=== PATIENT | male | born 1975 | race Caucasian/White ===

== ENCOUNTER 2019-09-25 09:07 | Inpatient (IN) | payer SELFPAY ==
[2019-09-25 09:10] VITALS: BP 182/126; PULSE 99; RESP 18; TEMP 37.9; O2SAT 97; BMI 23.7
--- NOTE | 2019-09-25 09:20 | ED_ITS ---
Entered by Danielle Talbert, acting as scribe for Thor Hdz DO HPI - Psych General: Chief Complaint: Psychiatric Symptoms Stated Complaint: SI Time Seen by Provider: 09/25/19 09:39 Source: patient Mode of arrival: ambulatory Limitations: no limitations History of Present Illness: HPI Narrative: 43-year-old male presents emergency room with complaints of depression and suicidal ideation. He has a plan although it is poorly formulated. He cannot express to me exactly why plans harm self elevated states he frequently has thoughts of killing himself. He has a history of substance abuse. He has used methamphetamines in the past. MD complaint: suicidal ideation and feels depressed Onset (ago): day(s) (yesterday) Duration: constant History of same: Yes Relieving factors: none Exacerbating factors: none Associated psychiatric symptoms: depression and suicidal ideation Associated symptoms: Reports depression, suicidal ideation and racing thoughts Treatments prior to arrival: none If self harm: other (racing thoughts to use a gun if needed) Review of Systems General: Reports: 10 or more systems reviewed and unremarkable except in HPI and below Const: Denies: fever, chills, body aches, fatigue, malaise or night sweats Eyes: Denies: change in vision or blurry vision ENMT: Denies: throat pain, oral sores/lesions, dental pain, nasal discharge or nasal congestion Card: Denies: chest pain, palpitations, irregular heart rhythm, edema, syncope, shortness of breath on exertion, shortness of breath when lying down or leg pain with exertion Resp: Denies: shortness of breath, productive cough, non-productive cough or wheezing GI: Denies: abdominal pain, nausea, vomiting, vomiting blood, coffee grounds in vomit, difficulty swallowing, heartburn/indigestion, diarrhea, constipation, cramping, blood in stool or black tarry stool : Denies: flank pain, difficulty urinating, painful urination, urinary frequency, urinary urgency, urinary incontinence or blood in urine Musc: Denies: neck pain, back pain, extremity pain, extremity swelling, joint pain or joint swelling Skin/Breast: Denies: rash, itching or redness Neuro: Denies: headache, numbness in extremities, weakness in extremities, changes in sensation, lack of coordination, difficulty walking, frequent falls, dizziness, vertigo or confusion Psych: Reports: depression and suicidal ideation Endo: Denies: excessive urination, excessive thirst, tired all the time or cold intolerance Mesfin/Lymph: Denies: easy bruising, easy bleeding, petechiae, enlarged lymph nodes or tender lymph nodes PFSH ED PFSH: Medical History (Updated 09/29/19 @ 00:00 by ) Nicotine addiction Family History (Updated 09/27/19 @ 13:07 by Oziel Magallon MD) Sister Congenital heart anomaly Social History (Updated 09/27/19 @ 13:08 by Oziel Magallon MD) Smoking and tobacco status: current every day smoker Alcohol intake: current Physical Exam Const: COMMON NORMALS: average body habitus, oriented x3 and alert GENERAL APPEARANCE: cooperative, comfortable, well kempt and well developed NUTRITIONAL APPEARANCE: obese ORIENTATION/CONSCIOUSNESS: Yes awake, Yes oriented to person and Yes oriented to place HENMT: COMMON NORMALS: normocephalic, head/scalp atraumatic, EAC's normal, TM's normal bilaterally, external nose normal, moist oral mucous membranes and oropharynx normal HEAD & SCALP: normocephalic and atraumatic NOSE: external nose normal EXTERNAL AUDITORY CANAL: EAC's normal TYMPANIC MEMBRANE: TM's normal bilaterally MOUTH: oral and palatal mucosa normal, lip normal and tongue normal THROAT: posterior oropharynx normal and tonsils normal Eye: COMMON NORMALS: PERRL, EOMs intact bilaterally, conjunctivae normal and no scleral icterus CONJUNCTIVA: Yes conjunctivae normal PUPIL: Yes PERRL Neck/C-Spine: COMMON NORMALS: full ROM, no lymphadenopathy, supple, no meningeal signs and thyroid normal THYROID: thyroid normal and asymmetrical Lymph: LYMPHATIC: no lymphadenopathy noted Resp: COMMON NORMALS: normal respiratory effort, no retractions, no use of accessory muscles and clear to auscultation bilaterally AUSCULTATION: clear to auscultation bilaterally Cardio: COMMON NORMALS: regular rate and regular rhythm RATE: regular rate RHYTHM: regular rhythm HEART SOUNDS: no murmurs GI: COMMON NORMALS: normal to inspection, nondistended, normoactive bowel sounds, soft to palpation and no hepatosplenomegaly PALPATION: Yes soft and Yes no hepatosplenomegaly : COMMON NORMALS: Yes no CVA tenderness BLADDER/KIDNEY EXAM: Yes no CVA tenderness Back/Pelvis: COMMON NORMALS: no CVA tenderness LUMBAR SPINE/LOWER BACK: Yes normal to inspection Extremity: COMMON NORMALS: no clubbing, cyanosis or edema, no calf tenderness and no pedal edema Neuro: COMMON NORMALS: oriented x3 SENSORIUM/ORIENTATION: Yes alert, Yes oriented to person and Yes oriented to place MENINGEAL SIGNS: Yes no meningeal signs Psych: APPEARANCE: Yes well kempt Skin: COMMON NORMALS: no rashes or lesions noted and skin turgor normal GENERAL SKIN EXAM: no rashes or lesions noted and turgor normal MDM - Psych Lab Data: Labs: Lab Results 09/25/19 09/25/19 09/25/19 Range/Units 09:50 09:50 09:56 WBC 6.2 (4.0-10.0) 10^3/ uL RBC 4.78 (4.1-5.3) 10^6/u L Hgb 15.5 (11.7-16.6) g/dL Hct 45.9 (42.0-52.0) % MCV 96.0 H (80-94) fL MCH 32.4 (28.0-34.0) pg MCHC 33.8 (30.0-36.0) g/dL RDW 12.2 (12.1-15.1) % Plt Count 168 (130-400) 10^3/c mm MPV 9.4 (7.4-10.4) fL Neut % (Auto) 71.2 % Lymph % (Auto) 16.8 % Benzie % (Auto) 8.6 % Eos % (Auto) 2.4 % Baso % (Auto) 0.8 % Neut # (Auto) 4.4 (1.8-7.7) 10^3/u L Lymph # (Auto) 1.0 (0.8-4.8) 10^3/u L Benzie # (Auto) 0.5 (0.2-0.9) 10^3/u L Eos # (Auto) 0.2 (0.0-0.8) 10^3/u L Baso # (Auto) 0.1 (0.0-0.1) 10^3/u L Nucleated RBC % (a uto) 0 % Nucleated RBCs # 0.0 /100WBC Sodium 134 L (136-145) mmol/L Potassium 4.1 (3.5-5.1) mmol/L Chloride 92 L (98-107) mmol/L Carbon Dioxide 26 (22-29) mmol/L Anion Gap 20.1 H (5-19) BUN 10 (6-20) mg/dL Creatinine 0.5 L (0.7-1.2) mg/dL GFR Calculation 179.8 H (90-130) mL/min Glucose 103 (65-115) mg/dL Calcium 10.3 (8.5-10.5) mg/dL Total Bilirubin 0.5 (0.15-1.2) mg/dL AST 42 H (0-40) U/L ALT 38 (0-41) U/L Alkaline Phosphata se 107 (40-130) IU/L Total Protein 8.7 (6.6-8.7) g/dL Albumin 4.9 (3.5-5.2) g/dL Globulin 3.8 (1.3-4.6) g/dL Salicylates < 0.3 L (3-10) mg/dL Urine Opiates Scre en Negative (Negative) ng/mL Acetaminophen < 5.0 L (10-30) ug/mL Ur Barbiturates Sc reen Negative (Negative) ng/mL Ur Phencyclidine S crn Negative (Negative) ng/mL Ur Amphetamines Sc reen Negative (Negative) ng/mL U Benzodiazepines Scrn Negative (Negative) ng/mL Urine Cocaine Scre en Negative (Negative) ng/mL U Marijuana (THC) Screen Negative (Negative) ng/mL Ethyl Alcohol 58 H (0-10) mg/dL Influenza Type A A g (Negative) POC Influenza B Ag (Negative) 09/25/19 Range/Units 10:39 WBC (4.0-10.0) 10^3/ uL RBC (4.1-5.3) 10^6/u L Hgb (11.7-16.6) g/dL Hct (42.0-52.0) % MCV (80-94) fL MCH (28.0-34.0) pg MCHC (30.0-36.0) g/dL RDW (12.1-15.1) % Plt Count (130-400) 10^3/c mm MPV (7.4-10.4) fL Neut % (Auto) % Lymph % (Auto) % Benzie % (Auto) % Eos % (Auto) % Baso % (Auto) % Neut # (Auto) (1.8-7.7) 10^3/u L Lymph # (Auto) (0.8-4.8) 10^3/u L Benzie # (Auto) (0.2-0.9) 10^3/u L Eos # (Auto) (0.0-0.8) 10^3/u L Baso # (Auto) (0.0-0.1) 10^3/u L Nucleated RBC % (a uto) % Nucleated RBCs # /100WBC Sodium (136-145) mmol/L Potassium (3.5-5.1) mmol/L Chloride (98-107) mmol/L Carbon Dioxide (22-29) mmol/L Anion Gap (5-19) BUN (6-20) mg/dL Creatinine (0.7-1.2) mg/dL GFR Calculation (90-130) mL/min Glucose (65-115) mg/dL Calcium (8.5-10.5) mg/dL Total Bilirubin (0.15-1.2) mg/dL AST (0-40) U/L ALT (0-41) U/L Alkaline Phosphata se (40-130) IU/L Total Protein (6.6-8.7) g/dL Albumin (3.5-5.2) g/dL Globulin (1.3-4.6) g/dL Salicylates (3-10) mg/dL Urine Opiates Scre en (Negative) ng/mL Acetaminophen (10-30) ug/mL Ur Barbiturates Sc reen (Negative) ng/mL Ur Phencyclidine S crn (Negative) ng/mL Ur Amphetamines Sc reen (Negative) ng/mL U Benzodiazepines Scrn (Negative) ng/mL Urine Cocaine Scre en (Negative) ng/mL U Marijuana (THC) Screen (Negative) ng/mL Ethyl Alcohol (0-10) mg/dL Influenza Type A A g Negative (Negative) POC Influenza B Ag Negative (Negative) Discharge Plan Discharge Patient Disposition: Admitted As Inpatient Admit Provider: Devin Chamorro Condition: Stable Discharge Orders: Discharge Order (Routine); Ordered 09/28/19 Ordered By: Devin Chamorro Discharge Diet: Regular Discharge Activity: Resume usual activity Patient Instructions: Propranolol (By mouth) Additional Instructions: Follow-up with a provider of choice for outpatient mental health services. Possible resource: [facility] ([facility]) [facility] [address] [place] [address] Go during the walk-in hours 7:30 a.m.-2:30 Saturday through Saturday and request initial assessment Discharge Date/Time: 09/25/19 11:04 Coding Level of Care Code ED Steward/Stewardess Chief Cargo Vessel for Chg Fwd Exam Comprehensive The documentation recorded by the Nitish hernandez Bridget Annette, accurately reflects the service I personally performed and the decisions made by Andreina painting Curtis L, Sep 25, 2019 09:07
[2019-09-25 09:23] VITALS: O2SAT 97
--- NOTE | 2019-09-25 09:25 | PC.NURSE ---
hospital sitter at bedside.
[2019-09-25 09:56] LABS: Basophils # 0.1 10^3/uL (0.0-0.1); Basophils % 0.8 %; Eosinophils # 0.2 10^3/uL (0.0-0.8); Eosinophils % 2.4 %; Hematocrit 45.9 % (42.0-52.0); Hemoglobin 15.5 g/dL (11.7-16.6); Lymphocytes % 16.8 %; Mean Corpuscular HGB Conc 33.8 g/dL (30.0-36.0); Mean Corpuscular Hemoglobin 32.4 pg (28.0-34.0); Mean Platelet Volume 9.4 fL (7.4-10.4); Monocytes # 0.5 10^3/uL (0.2-0.9); Monocytes % 8.6 %; Neutrophils # 4.4 10^3/uL (1.8-7.7); Neutrophils % 71.2 %; Nucleated Red Blood Cells % 0 %; Platelet Count 168 10^3/cmm (130-400); Red Blood Count 4.78 10^6/uL (4.1-5.3); Red Cell Distribution Width 12.2 % (12.1-15.1); White Blood Count 6.2 10^3/uL (4.0-10.0)
[2019-09-25] MEDS: LORazepam 1 mg Tablet PO (10:00)
[2019-09-25 10:10] LABS: Alanine Aminotransferase 38 U/L (0-41); Albumin Level 4.9 g/dL (3.5-5.2); Alcohol Level 58 mg/dL (0-10); Alkaline Phosphatase 107 IU/L (40-130); Anion Gap 20.1 (5-19); Aspartate Amino Transferase 42 U/L (0-40); Blood Urea Nitrogen 10 mg/dL (6-20); Calcium 10.3 mg/dL (8.5-10.5); Carbon Dioxide 26 mmol/L (22-29); Chloride 92 mmol/L (98-107); Globulin 3.8 g/dL (1.3-4.6); Glomerular Filtration Rate 179.8 mL/min (90-130); Glucose 103 mg/dL (65-115); Potassium 4.1 mmol/L (3.5-5.1); Sodium 134 mmol/L (136-145); Total Bilirubin 0.5 mg/dL (0.15-1.2); Total Protein 8.7 g/dL (6.6-8.7)
[2019-09-25 10:16] LABS: Acetaminophen < 5.0 ug/mL (10-30); Salicylate < 0.3 mg/dL (3-10)
--- NOTE | 2019-09-25 10:23 | XR_ITS ---
WS: [id number] Portable AP upright chest, 09/25/2019 Clinical Data: cough Comparison: PA and lateral chest, 12/31/2010. Findings: No nodules, masses or effusions are seen. The heart is normal. The pulmonary vascularity is not increased. No pneumonia or pneumothorax is seen. The diaphragms are flattened. XR/XR chest 1V portable [id number] Impression: Hyperinflation.
[2019-09-25 10:25] LABS: Amphetamines Screen Urine Negative (Negative); Barbiturates Screen Urine Negative (Negative); Benzodiazepines Screen Urine Negative (Negative); Cocaine Screen Urine Negative (Negative); Opiate Screen Urine Negative (Negative); PCP Screen Urine Negative (Negative); THC Screen Urine Negative (Negative)
--- NOTE | 2019-09-25 10:41 | PC.NURSE ---
pt reports decrease in anxiety after alprazolam administration
[2019-09-25 11:04] VITALS: BP 154/93; PULSE 72; RESP 18; TEMP 36.6; O2SAT 96
[2019-09-25 11:12] LABS: Influenza A by IFA Negative (Negative); Influenza B by IFA Negative (Negative)
[2019-09-25 11:25] VITALS: BP 139/90; PULSE 80; RESP 18; TEMP 36.8; O2SAT 96
[2019-09-25 14:00] VITALS: BP 124/76; PULSE 107; RESP 20; TEMP 36.4; O2SAT 95
[2019-09-25 21:44] VITALS: BP 133/74; PULSE 82; RESP 20; TEMP -12.3; TEMP 9.9; O2SAT 96
[2019-09-26 06:00] VITALS: BP 115/69; PULSE 67; RESP 18; TEMP 36.5; O2SAT 96
[2019-09-26] MEDS: folic acid 1 mg Tablet PO (08:07)
[2019-09-26] MEDS: multivitamin therapeutic Tablet 1 TAB PO (08:07)
[2019-09-26] MEDS: thiamine 100 mg Tablet PO (08:07)
[2019-09-26] MEDS: sertraline 50 mg Tablet PO ×2 (08:07→14:11)
--- NOTE | 2019-09-26 08:45 | P.HP_ITS ---
Providers/Chief Complaint Admitting Physician: Devin Chamorro MD Primary Care Provider: MIROSLAVA Lemon Chief Complaint: SI HPI NPU History of Present Illness Morro Fregoso is a 43 year old male who presents on admission from the emergency room secondary to reports of significant anxiety and panic. He reports that he got about 10 months ago. He reports has a history of methamphetamine use off and on for about 20 years and reports he last used about 10 years ago. He reports that he has had 1 previous psych admission. He had makes multiple drugs and raise concerns for his family took him to a psychiatric unit but he was discharged in 3 days and a reported that it was in fact the drugs I gave him a problem. He reports he started smoking cigarettes as above 10 or 11 smoked weed from ages 11 and 16 but denies use since then. He reports that he started using methamphetamine at age 16 but that he would use it for 8 months and stop and it was never something he did absolutely daily, he is always held job but he does report that some of his addictive behavior led to his divorce from his many years ago. 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 He denies drinking coffee or any significant sources of caffeine. He reports he never really been depressed. Reports episodes of overwhelming anxiety will come on out of the blue and lead to him discontinuing driving or whatever he is doing at that time. He denies cardiac issues he denies any significant stressors that he can think of. He does drink alcohol but he denies drinking at this point to a level of regular intoxication. Distally he reports that he does smoke cigarettes but that with this recent anxiety he hasn't been able to look cigarettes and that she is having a couple drinks to calm himself down. He endorses having had the anxiety so bad that he had some suicidal thoughts but denies history of suicide attempts. Psychiatric history: As above. This is second hospitalization. He has been on Zoloft for 3 weeks. He is not sure it helped much. We discussed the risks, benefits and alternatives of increasing Zoloft first to make sure that it is not something that will help, and he understood and agreed to proceed as is documented in his note in addition to discussing propranolol and other medications for anxiety. Substance abuse history: He endorses that he had been smoking about a pack and a half of cigarettes a day but that's really dropped down to maybe 5 or 6. He reports she'll have one during the day and then in the evening when he has a couple drinks and will have 5 or 6 week and tolerate cigarettes anymore for some reason. He reports he drin ks alcohol a couple shots of 4 shots daily. He denies marijuana use as stated above. Any hasn't had cocaine methamphetamine and opiates benzodiazepine or any other illicit drug use since about a decade ago. He never went to rehabilitation but he has had DUIs. Family history: Here for some possible issues with mental health issues on his mom's side, but denies much outside of that. He does have an uncle mom's side because no bed side so addiction issues on both sides of family. He denies any history of suicide attempts or completions in his family. Developmental history: He denies any issues during his mom's or delivery. He reports feeling to walk and talk him his developmental milestones on time. He denies any speech therapy, limited support, emotional support special education classes. Psychosocial history: He reports his mom and dad were together until he was about 10 years old. He reports that he has an older sister and a younger sister who are products of [employer]. Neither of his parents have other children. He reports [facility] was really good and denies any emotional or sexual abuse. He did not graduate from high school because he reports he had a baby in the ninth grade and dropped out to work but he did get his GED when he was 15. He endorses being heterosexual with this on his relationship being 10-11 years with his first . He reports his been 3 times and once. He has 4 daughters 3 of them being biological 2826 and 21-year-old. Is a 20-year-old that he raised that was the daughter early pain. He's never been in the . He has no catholic belief system. As long as employment was 7 years in the [employer]. He reports that he has a catheter in which he lives with his . Legal history: He was in [facility] times. The longest time was 4 months for getting behind on his child support. Meds NPU Home Medications Medication Instructions Recorded Confirmed Type lysine 1 tab PO DAILY 09/25/19 09/25/19 History sertraline 50 mg PO DAILY 09/25/19 09/25/19 History Allergies Allergy/AdvReac Type Severity Reaction Status Date / Time No Known Allergies Allergy Verified 09/25/19 09:17 Psychiatric Medication Details Psychiatric Medication Details/Notes: Home Medications lysine 1 tab PO DAILY 09/25/19 [History Confirmed 09/25/19] sertraline 50 mg PO DAILY 09/25/19 [History Confirmed 09/25/19] Active Medications Folic Acid (Folic Acid) 1 mg PO DAILY [facility] Lorazepam (Ativan) 2 mg IM PROTOCOL PRN; Protocol PRN Reason: ALCOWD Lorazepam (Ativan) 2 mg PO PROTOCOL PRN; Protocol PRN Reason: WITHDRAWAL Multivitamins Therapeutic (Multivitamin Tab) 1 tab PO DAILY [facility] Thiamine Mononitrate (Vitamin B-1) 100 mg PO DAILY [facility] PFSH NPU PFSH: Social History Smoking and tobacco status: current every day smoker Mental Status Exam MSE Comments: This is a well-nourished, well-developed white male with adequate progress, grooming and contact. No abnormal movements. Except for mild psychomotor retardation. Cooperative with exam in no acute distress. Speech was slightly decreased rate and volume. Mood described as pretty good considering. Affect congruent. Thought process organized. Thought content: Patient denies any suicidal or homicidal ideations, there were no delusions reported noted, he denied any auditory or visual hallucinations. Attention and concentration were intact memory. Reliable but none were formally tested. He is alert and oriented ?3. Insight and judgment are improving. Vitals/I&O/Wt Last Vital Signs Vital Signs Temp 97.7 F 09/26/19 06:00 Pulse 67 09/26/19 06:00 Resp 18 09/26/19 06:00 BP 115/69 09/26/19 06:00 Pulse Ox 96 09/26/19 06:00 Intake & Output 09/25/19 09/26/19 09/26/19 18:59 06:59 18:59 Weight 77.111 kg Weight last 48 hrs Weight 77.111 kg Data NPU : 09/25/19 09:50 09/25/19 09:50 A&P Assessment and plan (1) Panic attack: This is a 43-year-old white male with a significant history of addiction but limited history of mental health concerns who presents with a increasing issue of panic attacks which have led to suicidal thinking. 1. Continue current medication. Except: 2. Increase Zoloft to 100 mg by mouth every morning, start propranolol 10 mg by mouth 3 times a day when necessary. 3. Check EKG to rule out any arrhythmia leading to cardiac awareness. 4. Encourage individual, group therapy. 5. Continue every 15 minute checks for safety. 6. Will recommend sober living treatment at the highest level of intensity to which he is willing to commit. Status: Acute Code(s): F41.0 - Panic disorder [episodic paroxysmal anxiety] (2) Panic disorder: Status: Acute Code(s): F41.0 - Panic disorder [episodic paroxysmal anxiety] (3) Suicidal ideations: Status: Acute Code(s): R45.851 - Suicidal ideations (4) Alcohol use disorder: Status: Acute (5) Nicotine addiction: Status: Acute Code(s): F17.200 - Nicotine dependence, unspecified, uncomplicated Involuntary Hold Information 96 Hour Hold: 96 Hour Involuntary Admission: No Attestations NPU Medical Necessity Statement*: Inpatient hospitalization is medically necessary and he clinically appropriate intervention at this time. He will be in the hospital for over 2 midnights. We will monitor medications and make adjustments as indicated. Likely length of stay 2-4 days. Coding Level of Care Code Acute Retail Gift [employer] Merchandising for Justin Fwvirgen Diagnoses Panic attack F41.0 Panic disorder F41.0 Suicidal ideations R45.851 Alcohol use disorder Nicotine addiction F17.200
--- NOTE | 2019-09-26 13:16 | ECG_ITS ---
Measurements Intervals [place] Rate: 64 P: 82 [place]: 183 QRS: 54 QRSD: 129 T: 72 QT: 381 QTc: 394 SINUS RHYTHM POSSIBLE RIGHT VENTRICULAR CONDUCTION DELAY [RSR (QR) IN V1/V2] No previous ECG available for comparison Electronically Signed On 09-26-2019 20:35:45 LOWER IN SUPERVISOR by Zandra Henderson M.D. [email or web address]
[2019-09-26 14:00] VITALS: BP 118/76; PULSE 73; RESP 18; TEMP 36.8; O2SAT 94
[2019-09-26 22:00] VITALS: BP 134/84; PULSE 69; RESP 18; TEMP 36.5; O2SAT 97
[2019-09-27 06:00] VITALS: BP 129/81; PULSE 90; RESP 16; TEMP 36.8; O2SAT 94
[2019-09-27] MEDS: sertraline 100 mg Tablet PO (08:23)
[2019-09-27] MEDS: multivitamin therapeutic Tablet 1 TAB PO (08:24)
[2019-09-27] MEDS: folic acid 1 mg Tablet PO (08:24)
[2019-09-27] MEDS: thiamine 100 mg Tablet PO (08:24)
--- NOTE | 2019-09-27 10:03 | PM.NPN ---
Subjective NPU Subjective: Interval history: Morro presents today reporting that he is feeling better. He has not use the propranolol when necessary medication but we discussed again how it fit in his treatment regimen. We discussed the findings in the EKG and discussed any history of cardiac awareness or issues related to how he felt from a cardiovascular standpoint. He did report having some hypersensitivity to caffeine and recent issues with his nicotine use. Otherwise nothing that's doing well. We discussed the fact that there was a hospitalist consult that would be occurring this afternoon and that we would wait to see if the possible conduction abnormality had any practical relevance. We discussed the risks, benefits and alternatives of waiting to get the response on the consult and considering discharge tomorrow and he understood and agreed to proceed as documented in his note. Mental Status Exam MSE Comments: This is a well-nourished, well-developed white male with adequate dress, grooming and eye contact. No abnormal movements. Except for improving psychomotor retardation. Cooperative with exam in no acute distress. Speech was slightly decreased rate and volume. Mood described as better/pretty good. Affect congruent. Thought process organized. Thought content: Patient denies any suicidal or homicidal ideations, there were no delusions reported noted, he denied any auditory or visual hallucinations. Attention and concentration were intact memory. Reliable but none were formally tested. He is alert and oriented ?3. Insight and judgment are improving. Vitals/I&O/Wt Last Vital Signs Temp 98.2 F 09/27/19 06:00 Pulse 90 09/27/19 06:00 Resp 16 09/27/19 06:00 BP 129/81 09/27/19 06:00 Pulse Ox 94 09/27/19 06:00 Weight last 48 hrs Weight 73.992 kg Home Medications lysine 1 tab PO DAILY 09/25/19 [History Confirmed 09/25/19] sertraline 50 mg PO DAILY 09/25/19 [History Confirmed 09/25/19] Active Medications Folic Acid (Folic Acid) 1 mg PO DAILY [facility] Last Admin: 09/27/19 08:24 Dose: 1 mg Documented by: Lorazepam (Ativan) 2 mg IM PROTOCOL PRN; Protocol PRN Reason: ALCOWD Lorazepam (Ativan) 2 mg PO PROTOCOL PRN; Protocol PRN Reason: WITHDRAWAL Multivitamins Therapeutic (Multivitamin Tab) 1 tab PO DAILY [facility] Last Admin: 09/27/19 08:24 Dose: 1 tab Documented by: Propranolol HCl (Inderal) 20 mg PO TID PRN PRN Reason: ANXIETY Sertraline HCl (Zoloft) 100 mg PO DAILY [facility] Last Admin: 09/27/19 08:23 Dose: 100 mg Documented by: Thiamine Mononitrate (Vitamin B-1) 100 mg PO DAILY [facility] Last Admin: 09/27/19 08:24 Dose: 100 mg Documented by: Data NPU : 09/25/19 09:50 09/25/19 09:50 A&P Additional A&P Information This is a 43-year-old white male with a significant history of addiction but limited history of mental health concerns who presents with a increasing issue of panic attacks which have led to suicidal thinking. 1. Continue current medication. 2. Encourage individual, group therapy. 3. Continue every 15 minute checks for safety. 4. Will recommend sober living treatment at the highest level of intensity to which he is willing to commit. 5. Await recommendations from hospitalist consult. Involuntary Hold Information 96 Hour Hold: 96 Hour Involuntary Admission: No Attestations NPU Medical Necessity Statement*: Inpatient hospitalization is medically necessary and he clinically appropriate intervention at this time. We will monitor medications and make adjustments as indicated. Likely length of stay 1-3 days. Coding Level of Care Code Acute Marker Hand for Justin Aburto
--- NOTE | 2019-09-27 13:03 | P.CONIM_ITS ---
Providers/Reason For Consult Consulting Physican/Specialty*: hospitalist Reason for Consult*: chest palpitations Attending Physician: Devin Chamorro MD Primary Care Provider: MIROSLAVA Lemon History of Present Illness History of Present Illness Morro Fregoso is a 43 year old male with a past medical history of chronic alcoholism, smoker, COPD, panic attacks, who was admitted to the [facility] for anxiety. The hospitalist team were consulted due to possible cardiac etiology of patient's chest palpitations and anxiety. Patient states that he typically gets palpitations during anxious episodes. Denies chest pain. Denies shortness of breath. Denies wheezing. Denies lightheadedness, denies dizziness. Denies orthopnea. Denies paroxysmal nocturnal dyspnea. No nausea. No vomiting, no diaphoresis. No pain radiation to his neck back or arms. No numbness or tingling of his arms. No fevers. No chills. He does have a family history of CAD in his father who in his 90s from CAD. In addition he tells me that his sister had a history of cardiac anomaly associate with a pulmonary artery or PFO, he is not sure, no surgery required, she is doing well. He denies any significant cardiac history, no significant cardiac events in his childhood, no concerns for congenital heart defects. Denies chest pain or shortness of breath with exertion. Typically states his palpitations are typically associate with anxiety attacks. 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 His blood work does show evidence of transaminitis of related to alcoholic hepatitis. States that he smokes, smoked for more than 40 years, but down to 1 cigarette a day. States that he was hospitalized at one time for COPD exacerbation pneumonia. Has not seen a physician in over a year. Admits to drug use in the distant past, used methamphetamine, has not used in over 8 years. Review of Systems Const: Denies: fever, chills, fatigue or malaise Eyes: Denies: change in vision or blurry vision ENMT: Denies: nasal congestion Resp: Denies: shortness of breath, productive cough, non-productive cough or wheezing GI: Denies: abdominal pain, nausea, vomiting, vomiting blood, diarrhea, constipation, blood in stool or black tarry stool : Denies: flank pain, difficulty urinating, painful urination or urinary frequency Musc: Denies: neck pain or back pain Skin/Breast: Denies: rash Neuro: Denies: headache, dizziness or vertigo Psych: Denies: anxiety or depression Endo: Denies: excessive urination or excessive thirst Meds/Allergies Home Medications and Allergies Home Medications Medication Instructions Recorded Confirmed Type lysine 1 tab PO DAILY 09/25/19 09/25/19 History sertraline 50 mg PO DAILY 09/25/19 09/25/19 History Allergies Allergy/AdvReac Type Severity Reaction Status Date / Time No Known Allergies Allergy Verified 09/25/19 09:17 Current Medications Current Medications Generic Name Dose Route Start Last Admin Trade Name Gee PRN Reason Stop Dose Admin Folic Acid 1 mg 09/26/19 09:00 09/27/19 08:24 Folic Acid PO 1 mg DAILY SARAH Administration Multivitamins Therapeutic 1 tab 09/26/19 09:00 09/27/19 08:24 Multivitamin Tab PO 1 tab DAILY SARAH Administration Sertraline HCl 100 mg 09/27/19 09:00 09/27/19 08:23 Zoloft PO 100 mg DAILY SARAH Administration Thiamine Mononitrate 100 mg 09/26/19 09:00 09/27/19 08:24 Vitamin B-1 PO 100 mg DAILY SARAH Administration PFSH Acute PFSH: Family History (Updated 09/27/19 @ 13:07 by Oziel Magallon MD) Sister Congenital heart anomaly Social History (Updated 09/27/19 @ 13:08 by Oziel Magallon MD) Smoking and tobacco status: current every day smoker Alcohol intake: current Substance/Drug Use: former Vitals/I&O/Wt Last Vital Signs Temp 98.2 F 09/27/19 06:00 Pulse 90 09/27/19 06:00 Resp 16 09/27/19 06:00 BP 129/81 09/27/19 06:00 Pulse Ox 94 09/27/19 06:00 Weight last 48 hrs Weight 73.992 kg A&P Assessment and plan (1) Intermittent palpitations: -Likely related to panic attacks -EKG shows right ventricular conduction delay, no other significant ST-T wave changes -No chest pain, no shortness of breath, does have a family history of cardiac anomaly in his sister PLAN: -Advised patient to quit alcohol -Advised patient to quit smoking -If he has chest pain, shortness of breath, follow-up with primary care -Albuterol inhaler as needed for shortness of breath Status: Acute Code(s): R00.2 - Palpitations (2) Alcohol use disorder: Status: Acute (3) Panic attack: Status: Acute Code(s): F41.0 - Panic disorder [episodic paroxysmal anxiety] (4) COPD (chronic obstructive pulmonary disease): Status: Acute Code(s): J44.9 - Chronic obstructive pulmonary disease, unspecified Coding Level of Care Code Acute Industrial Illuminating Engineer for [facility] Diagnoses Intermittent palpitations R00.2 Alcohol use disorder Panic attack F41.0 COPD (chronic obstructive pulmonary disease) J44.9
[2019-09-27 13:35] VITALS: BP 121/78; PULSE 73; RESP 18; TEMP 36.6; O2SAT 95
[2019-09-27 17:48] VITALS: PULSE 105; RESP 16; O2SAT 95
[2019-09-27 21:25] VITALS: BP 105/75; PULSE 76; RESP 18; TEMP 37; O2SAT 95
[2019-09-28 06:00] VITALS: BP 107/87; PULSE 83; RESP 20; TEMP 36.8; O2SAT 96
[2019-09-28] MEDS: folic acid 1 mg Tablet PO (08:35)
[2019-09-28] MEDS: thiamine 100 mg Tablet PO (08:35)
[2019-09-28] MEDS: multivitamin therapeutic Tablet 1 TAB PO (08:35)
[2019-09-28] MEDS: sertraline 100 mg Tablet PO (08:35)
--- NOTE | 2019-09-28 12:18 | PM.NDC ---
Diagnoses at Discharge Discharge Diagnosis (1) Intermittent palpitations: Status: Acute (2) Alcohol use disorder: Status: Acute (3) Panic attack: Status: Acute (4) COPD (chronic obstructive pulmonary disease): Status: Acute Reason for Visit Reason for Visit: Reason For Visit: SI Brief History: HPI [facility] History of Present Illness Morro Fregoso is a 43 year old male who presents on admission from the emergency room secondary to reports of significant anxiety and panic. He reports that he got about 10 months ago. He reports has a history of methamphetamine use off and on for about 20 years and reports he last used about 10 years ago. He reports that he has had 1 previous psych admission. He had makes multiple drugs and raise concerns for his family took him to a psychiatric unit but he was discharged in 3 days and a reported that it was in fact the drugs I gave him a problem. He reports he started smoking cigarettes as above 10 or 11 smoked weed from ages 11 and 16 but denies use since then. He reports that he started using methamphetamine at age 16 but that he would use it for 8 months and stop and it was never something he did absolutely daily, he is always held job but he does report that some of his addictive behavior led to his divorce from his many years ago. 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 He denies drinking coffee or any significant sources of caffeine. He reports he never really been depressed. Reports episodes of overwhelming anxiety will come on out of the blue and lead to him discontinuing driving or whatever he is doing at that time. He denies cardiac issues he denies any significant stressors that he can think of. He does drink alcohol but he denies drinking at this point to a level of regular intoxication. Distally he reports that he does smoke cigarettes but that with this recent anxiety he hasn't been able to look cigarettes and that she is having a couple drinks to calm himself down. He endorses having had the anxiety so bad that he had some suicidal thoughts but denies history of suicide attempts. Psychiatric history: As above. This is second hospitalization. He has been on Zoloft for 3 weeks. He is not sure it helped much. We discussed the risks, benefits and alternatives of increasing Zoloft first to make sure that it is not something that will help, and he understood and agreed to proceed as is documented in his note in addition to discussing propranolol and other medications for anxiety. Substance abuse history: He endorses that he had been smoking about a pack and a half of cigarettes a day but that's really dropped down to maybe 5 or 6. He reports she'll have one during the day and then in the evening when he has a couple drinks and will have 5 or 6 week and tolerate cigarettes anymore for some reason. He reports he drinks alcohol a couple shots of 4 shots daily. He denies marijuana use as stated above. Any hasn't had cocaine methamphetamine and opiates benzodiazepine or any other illicit drug use since about a decade ago. He never went to rehabilitation but he has had DUIs. Family history: Here for some possible issues with mental health issues on his mom's side, but denies much outside of that. He does have an uncle mom's side because no bed side so addiction issues on both sides of family. He denies any history of suicide attempts or completions in his family. Developmental history: He denies any issues during his mom's or delivery. He reports feeling to walk and talk him his developmental milestones on time. He denies any speech therapy, limited support, emotional support special education classes. Psychosocial history: He reports his mom and dad were together until he was about 10 years old. He reports that he has an older sister and a younger sister who are products of that union. Neither of his parents have other children. He reports [place] was really good and denies any emotional or sexual abuse. He did not graduate from high school because he reports he had a baby in the ninth grade and dropped out to work but he did get his GED when he was 15. He endorses being heterosexual with this on his relationship being 10-11 years with his first . He reports his been 3 times and once. He has 4 daughters 3 of them being biological 2826 and 21-year-old. Is a 20-year-old that he raised that was the daughter early pain. He's never been in the . He has no synagogue belief system. As long as employment was 7 years in the [employer]. He reports that he has a catheter in which he lives with his . Legal history: He was in assisted 3 times. The longest time was 4 months for getting behind on his child support. Hospital Course Hospital Course Morro presents to the emergency room with lethality and increased depression. He was admitted to the neuro psych unit where he quickly acclimated to the individual, group and milieu therapy divided. His Zoloft 100 mg and propranolol 20 mg p.o. 3 times daily was initiated. He responded quite well to those medications. Additionally there was a medical consult due to the aggressive new onset nature of his anxiety, and he was noted to have a cardiac arrhythmia/condition for which follow-up was scheduled. During the hospitalization he had routine laboratory studies which were within normal limits except for a few outliers. Additionally he had a general medical evaluation along with a consultation which was mostly within normal limits and revealed no new acute processes outside of the cardiac issue. Discharge Summary At the time of discharge he denied all lethality, his mood was stable, his anxiety was under control, he denied any and memory disturbance resolved fairly quickly as he had a robust response. And endorsed a plan to follow-up with outpatient services. He was evaluated and deemed to be absent credible lethality and had obtained the maximum benefit from an inpatient hospitalization so he was discharged. Involuntary Hold Information 96 Hour Hold: 96 Hour Involuntary Admission: No Mental Status Exam MSE Comments: This is a well-nourished, well-developed white male with adequate dress, grooming and eye contact. No abnormal movements. Except for improving psychomotor retardation. Cooperative with exam in no acute distress. Speech was slightly decreased rate and volume. Mood described as better/pretty good. Affect congruent. Thought process organized. Thought content: Patient denies any suicidal or homicidal ideations, there were no delusions reported noted, he denied any auditory or visual hallucinations. Attention and concentration were intact memory was Reliable but none were formally tested. He is alert and oriented ?3. Insight and judgment are improving. Discharge Data Data Completed and Pending: Completed Studies During Hospitalization Category Date Time Status XR chest 1V tamir ble [id number] Stat Exams 09/25/19 10:23 Completed Vitals: Last Vital Signs Temp 98.2 F 09/28/19 06:00 Pulse 83 09/28/19 06:00 Resp 20 H 09/28/19 06:00 BP 107/87 09/28/19 06:00 Pulse Ox 96 09/28/19 06:00 Discharge Plan Discharge Patient Disposition: Home, Self-Care Condition: Stable Prescriptions: New sertraline 100 mg Tablet 100 mg PO DAILY 30 Days Qty: 30 RF: 1 propranolol 20 mg Tablet 20 mg PO TID PRN (Reason: Anxiety) 30 Days Qty: 90 RF: 1 Continued lysine 1 tab PO DAILY RF: 0 Discontinued sertraline 50 mg tablet 50 mg PO DAILY RF: 0 Discharge Orders: Discharge Order (Routine); Ordered 09/28/19 Ordered By: Devin Chamorro Discharge Diet: Regular Discharge Activity: Resume usual activity Patient Instructions: Propranolol (By mouth) Activity Restrictions/Additional Instructions: Follow-up with a provider of choice for outpatient mental health services. Possible resource: [facility] ([facility]) [address] [place] [address] Go during the walk-in hours 7:30 a.m.-2:30 Saturday through Saturday and request initial assessment Discharge Date/Time: 09/28/19 14:46 Discharge Attestations [facility] Time Spent in Discharge Care*: less than 30 min Specific Discharge Activities: Specific discharge activities: educating patient, discussing with case finisher/social workers/dc planners, documenting/other paperwork and evaluating patient/reviewing data Coding Level of Care Code Acute Employment Officer for [facility] Diagnoses Intermittent palpitations R00.2 Alcohol use disorder Panic attack F41.0 COPD (chronic obstructive pulmonary disease) J44.9
[2019-09-28 13:35] VITALS: BP 107/87; PULSE 83; RESP 20; TEMP 36.8; O2SAT 96
== END 2019-09-28 14:46 | disposition home or self-care (01) | DRG 880 ==
LOC: ER 09:55 → NP 10:56
PROVIDERS: Admitting Provider Psychiatry & Neurology Psychiatry; Emergency Provider Family Medicine; PCP Nurse Practitioner; Visit Provider Psychiatry & Neurology Psychiatry
DX: F41.0 Panic disorder [episodic paroxysmal anxiety] (principal); F17.210 Nicotine dependence, cigarettes, uncomplicated; J44.9 Chronic obstructive pulmonary disease, unspecified; F10.20 Alcohol dependence, uncomplicated
CPT/HCPCS: 12345; 36415; 71045; 80053; 80307; 85025; 87804; 93005; 99284; A9270